=== PATIENT | female | born 1930 | race Caucasian/White ===

== ENCOUNTER → 2017-01-10 | Outpatient (CLI) | payer MEDICARE, OTHER ==
--- NOTE | 2017-01-10 15:54 | RADRPT ---
PROCEDURE: XR left knee. CLINICAL INDICATION: Knee pain TECHNIQUE: AP weightbearing, lateral weightbearing and sunrise views are available for review. COMPARISON: None available FINDINGS: There is moderate osteoarthrosis involving the lateral tibial femoral compartment and mild osteoarth rosis involving the patellofemoral compartment. This is associated with joint space narrowing, subch ondral sclerosis and osteophytosis. There is otherwise normal mineralization, architecture and alignment. No fractures are identified. No osseous lesions are identified. The soft tissues are unremarkable. IMPRESSION: Moderate osteoarthrosis involving the lateral tibial femoral compartment and mild osteoarthrosis inv olving the patellofemoral compartment. RPTAT: [facility] .Edwin Julio MD, MD Date Time Electronically viewed and signed by .Edwin Julio MD, on 01/10/2017 15:54 .B/
--- NOTE | 2017-01-11 04:34 | HKNOTE ---
DATE OF SERVICE: 01/10/2017 MAIN COMPLAINT: Pain and locking of the left knee. The patient has been seen by me several times in the past for this painful knee. She has had cortis one injections into the knee. HISTORY OF MAIN COMPLAINT: The patient is an 86-year-old female who has seen me in the past for her painful left knee. She underwent a right knee replacement which was performed by me in 2008. The patient states that she "had a terrible time and had a great deal of pain and it took her a long gila e to recover," and she is afraid of further surgery on her left knee. She knows that she will need to have a left knee replacement sooner or later. She comes in to [facility] her options. The patient gets pain in her left knee with every step that she takes. The main problem is that the knee locks. It locks at about 90 degrees, and she has to "jiggle it around" to get it loose. She also has very poor balance. She does not use a walking aid. She is afraid that she may fall. PHYSICAL EXAMINATION: GENERAL: The patient is a reasonably healthy looking 86-year-old female. She comes in with her fly rodriguez. VITAL SIGNS: Height 4 feet 10 inches, weight 172 pounds, blood pressure 165/75, temperature 98.3. GAIT: The patient's gait is antalgic. LEFT KNEE: The left knee shows normal alignment. Active and passive extension is 0 degrees. Active and passive flexion is to 95 degrees. The medial and lateral collateral ligaments and cruciate ligam ents are intact. Truong test is negative. There is no scarring, crepitus, or cysts. The patella tra cks normally. There is no tenderness on the articular surface of the patella or in the patellar groo ve. The Q angle is normal. There is 2+ effusion. Tender over the medial joint line. IMAGING: Plain x-rays of her left knee obtained today were reviewed. These showed severe degenerat vu osteoarthritis of all 3 compartments of the knee with minimal joint space remaining. The latera l compartment of patellofemoral joints are most severely affected. Extensive osteophyte formation. Subchondral sclerosis Osteoporosis. An MRI scan of the left knee obtained on 10/31/2016 is reported as showing "complex tearing of the m edial meniscus. Complex tearing of the lateral meniscus. Moderate medial compartment osteoarthriti s. Severe lateral compartment and patellofemoral joint arthritis." DISCUSSION: An 86-year-old female with a combined diagnosis of torn meniscus with mechanical sympto ms and severe degenerative osteoarthritis of the left knee. MANAGEMENT: The patient was advised that she can manage the torn meniscus aspect by an arthroscopic operation which will probably relieve her of the locking problem. However, she seems to be in fair ly reasonable health and almost certainly will need a left knee replacement sooner or later in her l thaddeus. Her main problem seems to be getting over the difficulty of the extreme pain that she had with her l ast knee replacement. I probably spent at least 45 minutes with her and her daughter discussing modern techniques of knee replacement surgery which can be virtually pain free and with a rapid recovery. The patient was given my manual titled "Arthritis of the Knee Joint" which contains information conc erning the various alternatives of treatment. It includes various forms of conservative treatment, i ncluding the use of nonsteroidal anti-inflammatory medications and their dangers. Various surgical a lternatives are discussed. The technique of total knee replacement is discussed in detail, including possible complications. Included also is a section on the possible complications of blood transfusi on, a section on postoperative precautions, and an exercise program to follow at home after total kn ee replacement. The long-term care of a total knee replacement implant is also covered in detail. Th e patient was instructed to read this manual in its entirety since it is, in and of itself, a form o f informed consent. After reading this manual, the patient will make a list of further questions stanislav t may not have been covered adequately. The patient was further advised that this manual, although e xhaustive in nature, is only intended to supplement and complement a one-on-one discussion with me. The patient will discuss with her family and make a decision as to whether or not she would like to consider a partial solution for now with an arthroscopic operation or consider proceeding with knee replacement surgery. She also needs to get input from her country printer apprentice, Dr. Axel Poe. She will be seen again as nec essary. Dictated By: ION YIN/KRISTIE Conf#: [id number] DID#: [id number] CC: AXEL POE MD;*[facility]*
== END | disposition home or self-care (01) ==
LOC: HKI 13:45
DX: M25.562 Pain in left knee (principal); M17.12 Unilateral primary osteoarthritis, left knee
CPT/HCPCS: 73562; G0463

== ENCOUNTER → 2017-03-20 | Outpatient (CLI) | payer MEDICARE, OTHER ==
--- NOTE | 2017-03-21 06:42 | HKNOTE ---
DATE OF SERVICE: 03/20/2017 INTERVAL HISTORY: The patient states that the cortisone injection into her left knee at the last visit gave her tremendous relief of her pain. She comes back for repeat cortisone injection. Since she last saw me, she developed symptoms in her lower extremities, consisting of weakness of the legs. She states "it feels like my left leg is glued to the floor when I try to walk." She also had difficulty flexing her left hip against gravity. She saw a teacher specialist in [place], Dr. Vargas, who had previously performed a laminectomy on her 10 years ago. He told her that these symptoms are totally unrelated to her spine problem. She subsequently saw Dr. Tim Min for neurological examination. He told her that "there is nothing wrong neurologically." He also told her that there is no sign of Alzheimer's or any type of dementia. He stated he did not know why she is having these symptoms. PHYSICAL EXAMINATION: Examination of the left knee today unchanged since the last visit. MANAGEMENT: The patient is advised that whatever the symptoms are, they appear to be neurological. They are in no way related to her knee. She is going to go to return to see Dr. Tim Min again in a few days' time. Under sterile conditions, given injection of 2 cc of Kenalog and 6 cc percent lidocaine into the left knee and she will be seen again as necessary. Note that she we briefly discussed total knee replacement. She does not have [id number] degenerative changes in the knee and probably at her age it would be ross to avoid surgery at all if possible. Dictated By: Kaleb Fraga MD /radha/peri /Document#: [id number]
== END | disposition home or self-care (01) ==
LOC: HKI 15:15
DX: M25.562 Pain in left knee (principal)

== ENCOUNTER → 2018-04-18 | Outpatient (CLI) | END | disposition home or self-care (01) ==